=== PATIENT | female | born 1930 | race Caucasian/White ===

== ENCOUNTER 2017-09-06 15:48 | Emergency (ER) | payer MEDICARE, OTHER ==
[~2017-09-06] VITALS: Ht 167.6 cm; Wt 85.0 kg
[2017-09-06] MEDS ORDERED: ULTRAM50 M1 PO (18:23)
[2017-09-06 18:27] VITALS: BP 128/59
== END 2017-09-06 18:32 | disposition home or self-care (01) ==
LOC: ED 15:48
DX: S00.03XA Contusion of scalp, initial encounter (principal); M54.5 Low back pain; W05.0XXA Fall from non-moving wheelchair, initial encounter; Y92.009 Unspecified place in unspecified non-institutional (private) residence as the place of occurrence of the external cause